=== PATIENT | male | born 1965 | race Two or more races ===

== ENCOUNTER 2020-12-23 19:49 | Inpatient (IN) ==
[2020-12-23] MEDS ORDERED: ACETAMINOPHEN 500 MG TAB PO STA (19:59)
[2020-12-23 20:39] LABS: Appearance Urine Clear (Clear); Bacteria Urine Automated Negative (Negative); Bilirubin Urine Negative (Negative); Blood Urine 1+ (Negative); Color Urine Yellow; Epithelial Cell Urine Auto 0-5 /lpf (0-5); Glucose Urine UA 3+ (Negative); Ketones Urine 3+ (Negative); Leukocyte Esterase Urine Negative (Negative); Nitrite Urine Negative (Negative); Protein Urine 1+ (Negative); RBC Urine Automated 0-4 /hpf (0-4); Specific Gravity Urine > 1.045 (1.000-1.030); Urobilinogen Urine Negative (Negative); WBC Urine Automated >30 /hpf (0-5)
[2020-12-23] MEDS ORDERED: cefTRIAXone SODIUM 1,000 MG/50 ML BAG IV STA (20:41)
[2020-12-23] MEDS ORDERED: SODIUM CHLORIDE 0.9% 1000ML 2,000 ML IV ONE (20:41)
--- NOTE | 2020-12-23 20:46 | Emergency Department Note ---
Impression & Plan Sepsis, Leukocytosis, Acute UTI ED Provider Note NAME: JENNIFER HARRIS AGE: 55 SEX: M : 1965 ARRIVES VIA: Walk-In INFORMANT: Patient ED PROVIDER(S): Pancho Martin DO CHIEF COMPLAINT: fever and urinary symptoms HPI: Patient is a 55-year-old male who presents to the ER for fever and urinary symptoms. Symptoms started in the past 24 hours. Denies any headache or change in vision. No chest pain or shortness of breath. No belly pain, nausea, vomiting, or diarrhea. He admits to dysuria and frequency. Fever started yesterday and with that he has hot flashes. Fevers as high as 101-102. No open wounds or sores. He is went to [facility] and was diagnosed with a UTI and placed on Cipro. No back pain. ROS: See above HPI for pertinent positives & negatives. A total of 10 systems reviewed and were otherwise negative. PAST MEDICAL HISTORY:See Below PAST SURGICAL HISTORY:See Below FAMILY HISTORY:See Below SOCIAL HISTORY:See Below HOME MEDICATIONS:See Below ALLERGIES:See Below VITALS:See Below PHYSICAL EXAMINATION: GENERAL: Sitting up in bed, alert, well appearing, well nourished, no distress, non-toxic EYE EXAM: normal conjunctiva. OROPHARYNX: no exudate, no erythema, lips, buccal mucosa, and tongue normal and mucous membranes are moist NECK: supple, no nuchal rigidity, no adenopathy, non-tender LUNGS: Clear to auscultation. Normal chest wall mechanics HEART: no murmurs, S1 normal and S2 normal ABDOMEN: abdomen soft, non-tender, normo-active bowel sounds, no masses, no rebound or guarding. BACK: Back is symmetrical on inspection and there is no deformity, no midline tenderness, no CVA tenderness. SKIN: no rashes and no bruising UPPER EXTREMITIES: upper extremities are grossly normal. LOWER EXTREMITIES: No pitting edema. NEURO EXAM: Normal sensorium, cranial nerves II-XII grossly intact, normal speech, no gross weakness of arms, no gross weakness of legs. MEDICAL DECISION MAKING: Patient is a 55-year-old male who presents ER for urinary symptoms. He is found to be tachycardic and febrile. Heart rate in the 120s. He denies any back pain or any other complaints with exception of feeling weak. IV was established blood was obtained. Labs show leukocytosis of 19,000. No significant anemia. BMP with slightly elevated BUN. T bili slightly elevated 1.7. TSH and lipase was unremarkable. UA consistent with white cells and hematuria. Covid was negative. Patient has no back pain or flank pain to suggest a stone. Only symptoms are with urination. No pain with having bowel movements. Patient was updated bedside. He was given IV fluids and Rocephin and admitted for further work-up. Triage Nursing notes reviewed. Limited review of prior medical records performed Vital Signs: reviewed and remarkable for tachy and febrile Differential diagnosis: Differential diagnosis includes etiologies such as sepsis, UTI, pneumonia, metabolic, electrolyte abnormalities, cardiac sources, intracerebral event, toxicologic, neurological, as well as others were entertained. ER treatment provided: See below Diagnostics interpreted by me: ECG: none Cardiac Monitoring: An order was placed for continuous cardiac monitoring. The monitor shows a rate of 89 with sinus rhythm. Laboratory studies: As stated above and show below. Imaging studies: See below Consultation(s): none Procedures: none Critical Care: None Past Med/Surg History Social History Smoking Status: Never smoker Preferred Language: Cook Islander Feels Safe at Home: Yes Results & Data (ED) Vital Signs Vital Signs - 24 hr 12/23/20 19:53 12/23/20 21:12 12/23/20 21:30 Temperature 39.3 C H Temperature Source Temporal Artery Scan Pulse Rate 121 H 96 H 98 H Pulse Rate from SpO2 Sensor Pulse Rhythm Regular Pulse Strength Normal Respiratory Rate 20 14 17 Respiratory Effort / Characteristics Non-Labored Spontaneous Respiratory Depth Normal Respiratory Pattern Regular Blood Pressure 122/77 Blood Pressure Mean 92 Blood Pressure Position Sitting Pulse Oximetry 100 Oxygen Delivery Method Room Air Sepsis Recent Fever Within 48 Hours Yes Sepsis New/Unexplained Change in Mental Status No Sepsis Action Taken by Nursing Physician Notified 12/23/20 22:00 12/23/20 22:30 12/23/20 23:00 Temperature Temperature Source Pulse Rate 88 88 87 Pulse Rate from SpO2 Sensor 88 88 87 Pulse Rhythm Pulse Strength Respiratory Rate 17 19 18 Respiratory Effort / Characteristics Respiratory Depth Respiratory Pattern Blood Pressure 129/62 126/69 125/69 Blood Pressure Mean 84 88 87 Blood Pressure Position Pulse Oximetry 97 98 98 Oxygen Delivery Method Sepsis Recent Fever Within 48 Hours Sepsis New/Unexplained Change in Mental Status Sepsis Action Taken by Nursing 12/23/20 23:30 12/24/20 00:03 Temperature Temperature Source Pulse Rate 86 86 Pulse Rate from SpO2 Sensor 87 86 Pulse Rhythm Pulse Strength Respiratory Rate 9 L 15 Respiratory Effort / Characteristics Respiratory Depth Respiratory Pattern Blood Pressure 129/71 Blood Pressure Mean 90 Blood Pressure Position Pulse Oximetry 99 96 Oxygen Delivery Method Sepsis Recent Fever Within 48 Hours Sepsis New/Unexplained Change in Mental Status Sepsis Action Taken by Nursing Laboratory Data Result diagrams: 12/23/20 21:15 12/23/20 21:15 Lab Results 12/23/20 12/23/20 12/23/20 Range/Units 20:00 21:15 21:15 WBC 19.01 H (4.8-10.8) K/uL RBC 4.54 L (4.7-6.1) M/uL Hgb 13.7 L (14.0-18.0) g/dL Hct 39.6 L (42-52) % MCV 87.2 (80-100) fL MCH 30.2 (25-34) pg MCHC 34.6 (32-36) g/dL RDW Std Deviation 42.6 (36.4-46.3) fL RDW Coeff of Rodger 13.4 (11.5-14.5) % Plt Count 265 (130-400) K/uL MPV 8.8 (7.4-10.4) fL Immature Gran % (Auto) 0.4 % Neut % (Auto) 79.4 % Lymph % (Auto) 8.1 % [place] % (Auto) 12.0 % Eos % (Auto) 0.0 % Baso % (Auto) 0.1 % Neut # (Auto) 15.10 H (1.4-6.5) K/uL Lymph # (Auto) 1.54 (1.2-3.4) K/uL [place] # (Auto) 2.29 H (0.11-0.59) K/uL Eos # (Auto) 0.00 (0-0.5) K/uL Baso # (Auto) 0.01 (0-0.2) K/uL Immature Gran # (Auto) 0.07 H (0.00-0.02) K/uL Sodium 136 (136-145) mmol/L Potassium 3.7 (3.5-5.1) mmol/L Chloride 105 (98-107) mmol/L Carbon Dioxide 23 (21-32) mmol/L Anion Gap 8.0 (3-11) BUN 19 H (7-18) mg/dl Creatinine 1.06 (0.6-1.4) mg/dl Est Cr Clr Drug Dosing 81.9 ml/min Est GFR ( Amer) 89.9 ml/min Est GFR (Non-Af Amer) 77.5 ml/min BUN/Creatinine Ratio 17.9 (10-20) Glucose 119 H (70-99) mg/dl Lactate (0.4-2.0) mmol/L Calcium 9.1 (8.5-10.1) mg/dl Magnesium 2.3 (1.8-2.4) mg/dl Total Bilirubin 1.7 H (0.2-1) mg/dl AST 18 (15-37) U/L ALT 33 (12-78) U/L Alkaline Phosphatase 67 (45-117) U/L Total Protein 8.3 H (6.4-8.2) gm/dl Albumin 3.6 (3.4-5.0) gm/dl Globulin 4.7 H (2.5-4.0) gm/dl Albumin/Globulin Ratio 0.8 L (0.9-2) Lipase 272 (73-393) U/L TSH 2.600 (0.300-4.500) uIu/ml Urine Color Yellow Urine Appearance Clear (Clear) Urine pH 5.0 (4.5-7.5) Ur Specific [place] > 1.045 H (1.000-1.030) Urine Protein 1+ H (Negative) Urine Glucose (UA) 3+ H (Negative) Urine Ketones 3+ H (Negative) Urine Blood 1+ H (Negative) Urine Nitrite Negative (Negative) Urine Bilirubin Negative (Negative) Urine Urobilinogen Negative (Negative) Ur Leukocyte Esterase Negative (Negative) Urine WBC (Auto) >30 H (0-5) /hpf Urine RBC (Auto) 0-4 (0-4) /hpf U Hyaline Cast (Auto) 1-5 (0-5) /lpf U Epithel Cells (Auto) 0-5 (0-5) /lpf Urine Bacteria (Auto) Negative (Negative) COVID-19 Eval Order 12/23/20 12/24/20 Range/Units 21:15 00:30 WBC (4.8-10.8) K/uL RBC (4.7-6.1) M/uL Hgb (14.0-18.0) g/dL Hct (42-52) % MCV (80-100) fL MCH (25-34) pg MCHC (32-36) g/dL RDW Std Deviation (36.4-46.3) fL RDW Coeff of [place]ger (11.5-14.5) % Plt Count (130-400) K/uL MPV (7.4-10.4) fL Immature Gran % (Auto) % Neut % (Auto) % Lymph % (Auto) % [place] % (Auto) % Eos % (Auto) % Baso % (Auto) % Neut # (Auto) (1.4-6.5) K/uL Lymph # (Auto) (1.2-3.4) K/uL [place] # (Auto) (0.11-0.59) K/uL Eos # (Auto) (0-0.5) K/uL Baso # (Auto) (0-0.2) K/uL Immature Gran # (Auto) (0.00-0.02) K/uL Sodium (136-145) mmol/L Potassium (3.5-5.1) mmol/L Chloride (98-107) mmol/L Carbon Dioxide (21-32) mmol/L Anion Gap (3-11) BUN (7-18) mg/dl Creatinine (0.6-1.4) mg/dl Est Cr Clr Drug Dosing ml/min Est GFR ( Amer) ml/min Est GFR (Non-Af Amer) ml/min BUN/Creatinine Ratio (10-20) Glucose (70-99) mg/dl Lactate 1.1 (0.4-2.0) mmol/L Calcium (8.5-10.1) mg/dl Magnesium (1.8-2.4) mg/dl Total Bilirubin (0.2-1) mg/dl AST (15-37) U/L ALT (12-78) U/L Alkaline Phosphatase (45-117) U/L Total Protein (6.4-8.2) gm/dl Albumin (3.4-5.0) gm/dl Globulin (2.5-4.0) gm/dl Albumin/Globulin Ratio (0.9-2) Lipase (73-393) U/L TSH (0.300-4.500) uIu/ml Urine Color Urine Appearance (Clear) Urine pH (4.5-7.5) Ur Specific [place] (1.000-1.030) Urine Protein (Negative) Urine Glucose (UA) (Negative) Urine Ketones (Negative) Urine Blood (Negative) Urine Nitrite (Negative) Urine Bilirubin (Negative) Urine Urobilinogen (Negative) Ur Leukocyte Esterase (Negative) Urine WBC (Auto) (0-5) /hpf Urine RBC (Auto) (0-4) /hpf U Hyaline Cast (Auto) (0-5) /lpf U Epithel Cells (Auto) (0-5) /lpf Urine Bacteria (Auto) (Negative) COVID-19 Eval Order Covid19 at [facility] Administered Medications Discontinued Medications Acetaminophen (Acetaminophen 500 Mg Tab) 1,000 mg PO NOW STA Stop: 12/23/20 20:00 Last Admin: 12/23/20 20:08 Dose: 1,000 mg Documented by: [id number] Sodium Chloride (Nss 1000ml) 2,000 mls @ 999 mls/hr IV .Q2H1M ONE Stop: 12/23/20 22:41 Last Infusion: 12/23/20 23:42 Dose: 0 mls/hr Documented by: [id number] Admin: 12/23/20 21:43 Dose: 999 mls/hr Documented by: [id number] Ceftriaxone Sodium (Rocephin) 1,000 mg in 50 mls @ 100 mls/hr IV NOW STA Stop: 12/23/20 21:10 Last Infusion: 12/23/20 22:17 Dose: 0 mls/hr Documented by: [id number] Admin: 12/23/20 21:45 Dose: 100 mls/hr Documented by: [id number] Cefepime HCl (Maxipime) 2,000 mg in 20 mls @ 5 mls/min IV NOW STA; Protocol Stop: 12/24/20 00:55 Last Admin: 12/24/20 01:00 Dose: 5 mls/min Documented by: [id number] Potassium Chloride (Potassium Chloride Crtab 20 Meq Tabcr) 40 meq PO NOW STA Stop: 12/24/20 00:53 Last Admin: 12/24/20 01:00 Dose: 40 meq Documented by: [id number] Discharge Plan Visit Data Chief Complaint: Illness Stated Complaint: ON & OFF FEVER, UTI, ELEVATED HEART RATE ED Provider: Pancho Martin Discharge Problem: Sepsis, Leukocytosis, Acute UTI Forms Stand Alone Forms: [facility] Referrals Referrals: PCP,NO [Physician] -
[2020-12-23 21:30] LABS: Basophils # (auto) 0.01 K/uL (0-0.2); Basophils % (auto) 0.1 %; Hematocrit (blood only) 39.6 % (42-52); Hemoglobin 13.7 g/dL (14.0-18.0); Immature Granulocytes # (auto) 0.07 K/uL (0.00-0.02); Immature Granulocytes % (auto) 0.4 %; Lymphocytes # (auto) 1.54 K/uL (1.2-3.4); Lymphocytes % (auto) 8.1 %; Mean Corpuscular Hemoglobin 30.2 pg (25-34); Mean Corpuscular Hgb Conc 34.6 g/dL (32-36); Mean Corpuscular Volume 87.2 fL (80-100); Mean Platelet Volume 8.8 fL (7.4-10.4); Monocytes # (auto) 2.29 K/uL (0.11-0.59); Neutrophils % (auto) 79.4 %; Platelet Count 265 K/uL (130-400); RDW Coefficient of Variation 13.4 % (11.5-14.5); RDW Standard Deviation 42.6 fL (36.4-46.3); Red Blood Count 4.54 M/uL (4.7-6.1); White Blood Count 19.01 K/uL (4.8-10.8)
[2020-12-23 21:48] LABS: Albumin Level 3.6 gm/dl (3.4-5.0); BUN Creatinine Ratio 17.9 (10-20); Calcium 9.1 mg/dl (8.5-10.1); Creatinine Clr Calc Pharmacy 81.9 ml/min; Est GFR (African American) 89.9 ml/min; Est GFR (Non-African American) 77.5 ml/min; Potassium 3.7 mmol/L (3.5-5.1)
[2020-12-23 21:51] LABS: Albumin Globulin Ratio 0.8 (0.9-2); Bilirubin,Total 1.7 mg/dl (0.2-1); Globulin 4.7 gm/dl (2.5-4.0); Total Protein 8.3 gm/dl (6.4-8.2)
[2020-12-24 00:26] LABS: Magnesium 2.3 mg/dl (1.8-2.4)
--- NOTE | 2020-12-24 00:47 | History & Physical Report ---
Date of Service December 24, 2020 Assessment & Plan (1) Sepsis: Plan: Secondary to complicated UTI status post partial Cipro treatment hypertension, stable hyperlipidemia, statin Rx DM2 on oral medications, suboptimal control as of recent hemoglobin A1c of 7.11 Oct 2020 Medical telemetry CS, Cefepime Basal insulin, ISS BG goal 1 10-1 40, carb count coverage DVT prophylaxis. Lovenox subcu Full code Text document was generated using [employer] voice recognition software. It may contain grammatical or spelling errors. Kindly contact undersigned for clarification of any documentation item in question. History of Present Illness Chief Complaint: Urinary symptoms, fever Primary Care Provider: Gen Casey MD History obtained from patient and records. Medical history significant for hypertension, hyperlipidemia, DM2 on oral medications. 2 days history of dysuria symptoms later followed by fever chills yesterday. No hematuria, flank pain. No prior UTI episodes. Patient denies chest pain, cough, S OB. Patient seen at urgent care center yesterday. Prescribed ciprofloxacin for possible UTI. Some improvement in symptoms after 2 doses of antibiotic. At the ER, patient received IV Ceftriaxone for sepsis. Medical History as above Right scrotal lump noted October 2020 which resolved with heat application. Moderate left varicocele of left testicle on outpatient imaging. 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 Allergies Allergy/AdvReac Type Severity Reaction Status Date / Time shellfish derived AdvReac Vomiting Verified 12/24/20 01:33 Home Medications Medication Instructions Recorded Confirmed Type amlodipine 2.5 mg tablet 2.5 mg PO DAILY 12/24/20 12/24/20 History atorvastatin 10 mg tablet 10 mg PO HS 12/24/20 12/24/20 History diphenhydramine HCl 25 mg PO HS PRN 12/24/20 12/24/20 History empagliflozin 25 mg tablet 25 mg PO DAILY 12/24/20 12/24/20 History (Jardiance) glimepiride 4 mg tablet 4 mg PO BID 12/24/20 12/24/20 History ibuprofen 200 mg-diphenhydramine 1 cap PO HS PRN 12/24/20 12/24/20 History HCl 25 mg capsule (Advil PM Liqui-Gels) lisinopril 40 mg tablet 40 mg PO DAILY 12/24/20 12/24/20 History metformin 1,000 mg tablet 1,000 mg PO DAILY 12/24/20 12/24/20 History omega-3 fatty acids 500 mg PO DAILY 12/24/20 12/24/20 History semaglutide 14 mg tablet (Rybelsus) 14 mg PO DAILY 12/24/20 12/24/20 History Past Med/Surg History Social History Smoking Status: Never smoker Hx Alcohol Use: Yes Alcohol type: wine Hx Substance Use: No Preferred Language: Icelandic Beliefs That Will Affect Care: None Current Living Situation: Family Current Living Situation Comment: Home with and 3 children Other Information That Helps Us Care for You: No Feels Safe at Home: Yes Safety Concerns: Feels Safe At This Time Assistive Devices: Glasses Review of Systems Review of Systems: As per HPI, all 10 systems reviewed, all other ROS negative Physical Exam Physical Exam: GENERAL: Comfortable, pleasant, looks younger than stated age, no respiratory distress SKIN: Normal color, warm HEENT: [place] palpebral conjunctivae, no ptosis, dry buccal mucosa NECK : Supple, no tenderness CHEST : CTA, no tenderness HEART : RRR, no obvious murmurs ABDOMEN: Some distention, nontender EXTREMITIES : No LE swelling/tenderness, no other conspicuous deformities noted NEUROLOGIC : Coherent, no facial asymmetry, no other gross focality Results & Data Results & Data ([facility]) Vital Signs (Past 12 Hours) Vital Signs Temp Pulse Resp BP Pulse Ox 12/24/20 00:03 86 15 96 12/23/20 23:30 86 9 L 129/71 99 12/23/20 23:00 87 18 125/69 98 12/23/20 22:30 88 19 126/69 98 12/23/20 22:00 88 17 129/62 97 12/23/20 21:30 98 H 17 12/23/20 21:12 96 H 14 12/23/20 19:53 39.3 C H 121 H 20 122/77 100 Laboratory Results Laboratory Results WBC 19.01 K/uL (4.8-10.8) H 12/23/20 21:15 RBC 4.54 M/uL (4.7-6.1) L 12/23/20 21:15 Hgb 13.7 g/dL (14.0-18.0) L 12/23/20 21:15 Hct 39.6 % (42-52) L 12/23/20 21:15 MCV 87.2 fL (80-100) 12/23/20 21:15 MCH 30.2 pg (25-34) 12/23/20 21:15 MCHC 34.6 g/dL (32-36) 12/23/20 21:15 RDW Std Deviation 42.6 fL (36.4-46.3) 12/23/20 21:15 RDW Coeff of Rodger 13.4 % (11.5-14.5) 12/23/20 21:15 Plt Count 265 K/uL (130-400) 12/23/20 21:15 MPV 8.8 fL (7.4-10.4) 12/23/20 21:15 Immature Gran % (Auto) 0.4 % 12/23/20 21:15 Neut % (Auto) 79.4 % 12/23/20 21:15 Lymph % (Auto) 8.1 % 12/23/20 21:15 [place] % (Auto) 12.0 % 12/23/20 21:15 Eos % (Auto) 0.0 % 12/23/20 21:15 Baso % (Auto) 0.1 % 12/23/20 21:15 Neut # (Auto) 15.10 K/uL (1.4-6.5) H 12/23/20 21:15 Lymph # (Auto) 1.54 K/uL (1.2-3.4) 12/23/20 21:15 [place] # (Auto) 2.29 K/uL (0.11-0.59) H 12/23/20 21:15 Eos # (Auto) 0.00 K/uL (0-0.5) 12/23/20 21:15 Baso # (Auto) 0.01 K/uL (0-0.2) 12/23/20 21:15 Immature Gran # (Auto) 0.07 K/uL (0.00-0.02) H 12/23/20 21:15 Sodium 136 mmol/L (136-145) 12/23/20 21:15 Potassium 3.7 mmol/L (3.5-5.1) 12/23/20 21:15 Chloride 105 mmol/L (98-107) 12/23/20 21:15 Carbon Dioxide 23 mmol/L (21-32) 12/23/20 21:15 Anion Gap 8.0 (3-11) 12/23/20 21:15 BUN 19 mg/dl (7-18) H 12/23/20 21:15 Creatinine 1.06 mg/dl (0.6-1.4) 12/23/20 21:15 Est Cr Clr Drug Dosing 81.9 ml/min 12/23/20 21:15 Est GFR ( Amer) 89.9 ml/min 12/23/20 21:15 Est GFR (Non-Af Amer) 77.5 ml/min 12/23/20 21:15 BUN/Creatinine Ratio 17.9 (10-20) 12/23/20 21:15 Glucose 119 mg/dl (70-99) H 12/23/20 21:15 Lactate 1.1 mmol/L (0.4-2.0) 12/23/20 21:15 Calcium 9.1 mg/dl (8.5-10.1) 12/23/20 21:15 Magnesium 2.3 mg/dl (1.8-2.4) 12/23/20 21:15 Total Bilirubin 1.7 mg/dl (0.2-1) H 12/23/20 21:15 AST 18 U/L (15-37) 12/23/20 21:15 ALT 33 U/L (12-78) 12/23/20 21:15 Alkaline Phosphatase 67 U/L (45-117) 12/23/20 21:15 Total Protein 8.3 gm/dl (6.4-8.2) H 12/23/20 21:15 Albumin 3.6 gm/dl (3.4-5.0) 12/23/20 21:15 Globulin 4.7 gm/dl (2.5-4.0) H 12/23/20 21:15 Albumin/Globulin Ratio 0.8 (0.9-2) L 12/23/20 21:15 Lipase 272 U/L (73-393) 12/23/20 21:15 Urine Color Yellow 12/23/20 20:00 Urine Appearance Clear (Clear) 12/23/20 20:00 Urine pH 5.0 (4.5-7.5) 12/23/20 20:00 Ur Specific [place] > 1.045 (1.000-1.030) H 12/23/20 20:00 Urine Protein 1+ (Negative) H 12/23/20 20:00 Urine Glucose (UA) 3+ (Negative) H 12/23/20 20:00 Urine Ketones 3+ (Negative) H 12/23/20 20:00 Urine Blood 1+ (Negative) H 12/23/20 20:00 Urine Nitrite Negative (Negative) 12/23/20 20:00 Urine Bilirubin Negative (Negative) 12/23/20 20:00 Urine Urobilinogen Negative (Negative) 12/23/20 20:00 Ur Leukocyte Esterase Negative (Negative) 12/23/20 20:00 Urine WBC (Auto) >30 /hpf (0-5) H 12/23/20 20:00 Urine RBC (Auto) 0-4 /hpf (0-4) 12/23/20 20:00 U Hyaline Cast (Auto) 1-5 /lpf (0-5) 12/23/20 20:00 U Epithel Cells (Auto) 0-5 /lpf (0-5) 12/23/20 20:00 Urine Bacteria (Auto) Negative (Negative) 12/23/20 20:00 COVID-19 Eval Order Covid19 at [facility] 12/24/20 00:30 Diagnostic Findings Chest x-ray as per my interpretation elevated right hemidiaphragm
[2020-12-24] MEDS ORDERED: CEFEPIME 2,000 MG/20 ML VIAL IV STA (00:52)
[2020-12-24] MEDS ORDERED: POTASSIUM CHLORIDE CRTAB 20 MEQ TABCR PO STA (00:52)
[2020-12-24 01:00] LABS: Thyroid Stimulating Hormone 2.6 uIu/ml (0.300-4.500)
[2020-12-24] MEDS ORDERED: POTASSIUM CHLORIDE 40 MEQ in SODIUM CHLORIDE 0.9% 1000ML 1,000 ML IV ONE (01:30)
[2020-12-24] MEDS ORDERED: PROMETHAZINE HCL 12.5 MG in SODIUM CHLORIDE 0.9% 50 ML IV PRN (02:55)
[2020-12-24] MEDS ORDERED: DEXTROSE 50% 50 ML SYRINGE IV PRN (02:55)
[2020-12-24] MEDS ORDERED: CEFEPIME CONSULT ACTIVE PRN (02:55)
[2020-12-24] MEDS ORDERED: GLUCAGON FOR INJ 1 MG VIAL SQ PRN (02:55)
[2020-12-24] MEDS ORDERED: ACETAMINOPHEN 325 MG TAB PO PRN (02:55)
[2020-12-24] MEDS ORDERED: GLUCOSE 10 TABS/TUBE PO PRN (02:55)
[2020-12-24] MEDS ORDERED: CARBOHYDRATES FOR HYPOGLYCEMIA PO PRN (02:55)
[2020-12-24] MEDS ORDERED: traMADol HCL 50 MG TABLET PO PRN (02:55)
[2020-12-24] MEDS ORDERED: GLUCOSE 40% GEL 15 GM TUBE PO PRN (02:55)
[2020-12-24] MEDS ORDERED: LORazepam 0.25 MG/0.5 ML VIAL IV PRN (02:55)
[2020-12-24] MEDS: INSULIN ASPART 100 UNITS/ML 3 ML PEN SC SCH ×5 (05:55→20:48)
[2020-12-24 06:49] LABS: Basophils # (auto) 0.01 K/uL (0-0.2); Basophils % (auto) 0.1 %; Eosinophils # (auto) 0.07 K/uL (0-0.5); Eosinophils % (auto) 0.4 %; Hematocrit (blood only) 38.5 % (42-52); Hemoglobin 13.1 g/dL (14.0-18.0); Immature Granulocytes # (auto) 0.06 K/uL (0.00-0.02); Immature Granulocytes % (auto) 0.4 %; Lymphocytes # (auto) 1.99 K/uL (1.2-3.4); Lymphocytes % (auto) 11.9 %; Mean Corpuscular Hemoglobin 30.1 pg (25-34); Mean Corpuscular Volume 88.5 fL (80-100); Mean Platelet Volume 8.6 fL (7.4-10.4); Monocytes # (auto) 2.21 K/uL (0.11-0.59); Monocytes % (auto) 13.2 %; Neutrophils # (auto) 12.37 K/uL (1.4-6.5); Platelet Count 267 K/uL (130-400); RDW Coefficient of Variation 13.5 % (11.5-14.5); RDW Standard Deviation 44.4 fL (36.4-46.3); Red Blood Count 4.35 M/uL (4.7-6.1); White Blood Count 16.71 K/uL (4.8-10.8)
[2020-12-24 07:16] LABS: BUN Creatinine Ratio 18.5 (10-20); Calcium 8.6 mg/dl (8.5-10.1); Creatinine Clr Calc Pharmacy 98.6 ml/min; Est GFR (African American) 110.5 ml/min; Est GFR (Non-African American) 95.4 ml/min; Potassium 4.4 mmol/L (3.5-5.1)
[2020-12-24] MEDS: amLODIPine BESYLATE 5 MG TAB PO SCH (08:12)
[2020-12-24] MEDS: lisinopril 40 MG TAB PO SCH (08:13)
[2020-12-24] MEDS: ENOXAPARIN INJ 40 MG/0.4 ML SYR SQ SCH (08:14)
[2020-12-24] MEDS: INSULIN GLARGINE SOLOSTAR 100 UNITS/ML 3 ML PEN SC SCH (08:15)
--- NOTE | 2020-12-24 08:17 | XRay Report ---
XR chest 1V portable HISTORY: Fevers. sepsis COMPARISON: None. FINDINGS: The lungs are clear. Cardiac silhouette is normal in size. No pleural effusions. No pneumot horax. IMPRESSION: No acute process. ACT 112: Negative or not required by law. Electronically signed by: Ovi Aguilar M.D. 12/24/2020 8:16 AM
[2020-12-24] MEDS: CEFEPIME 2,000 MG in SYRINGE 0 ML IV SCH ×2 (10:42→20:48)
--- NOTE | 2020-12-24 11:01 | Hospitalist Progress Note ---
Date of Service December 24, 2020 Assessment & Plan (1) Sepsis: Plan: Sepsis UTI Partly treated with Ciprofloxacin as outpatient Blood, urine culture pending Continue IV fluids Continue cefepime Leukocytosis trending down Hypertension BP stable Continue amlodipine, lisinopril Hyperlipidemia On statin DM II Hol PO meds Last HbA1C:7.4 Continue Insulin therapy while hospitalized Monitor BGs DVT Px: Lovenox SQ Code Status Full code Admission and Anticipated Discharge Date Admission Date: December 24, 2020 Subjective Patient is seen and examined at bedside Dysuria resolved Denies any hematuria, flank pain, chest pain, dyspnea, dizziness Eager to get discharged Leukocytosis trending down Offers no other complaints Review of Systems Review of Systems: All systems reviewed & are unremarkable except as noted in Subjective Physical Exam Physical Exam: Physical Exam: Vitals signs as noted above General Appearance:Moderately built and nourished, no apparent distress Head: normocephalic, Atraumatic Eyes: normal inspection, EOMI Neck: supple, Trachea midline Respiratory/Chest: Normal breath sounds, CTA, No accessory muscle use Cardiovascular: S1, S2, No murmur Abdomen/GI:Soft, Non tender, Bowel sounds present Extremities/Musculoskeletal:normal inspection, no edema Neurologic/Psych:AAOX3, grossly no focal neurological deficits Skin: normal color, warm Results & Data Results & Data ([facility]) Vital Signs (Past 12 Hours) Vital Signs Temp Pulse Pulse Pulse Resp BP BP 12/24/20 07:30 37.6 C H 88 16 12/24/20 07:24 89 12/24/20 02:55 37.4 C 90 16 131/68 12/24/20 02:48 89 12/24/20 02:26 37.3 C 90 18 147/75 H 12/24/20 02:00 88 17 147/75 H 12/24/20 01:30 90 19 153/65 H 12/24/20 01:21 37.3 C 12/24/20 01:00 93 H 19 141/71 H 12/24/20 00:30 93 H 18 141/72 H 12/24/20 00:03 86 15 12/23/20 23:30 86 9 L 129/71 12/23/20 23:00 87 18 125/69 BP Pulse Ox Pulse Ox 12/24/20 07:30 129/68 99 12/24/20 07:24 12/24/20 02:55 98 98 12/24/20 02:48 12/24/20 02:26 97 12/24/20 02:00 98 12/24/20 01:30 97 12/24/20 01:21 12/24/20 01:00 99 12/24/20 00:30 98 12/24/20 00:03 96 12/23/20 23:30 99 12/23/20 23:00 98 Laboratory Results Short CBC 12/23/20 12/24/20 Range/Units 21:15 06:34 WBC 19.01 H 16.71 H (4.8-10.8) K/uL Hgb 13.7 L 13.1 L (14.0-18.0) g/dL Hct 39.6 L 38.5 L (42-52) % Plt Count 265 267 (130-400) K/uL BMP 12/23/20 12/24/20 21:15 06:34 Sodium 136 139 Potassium 3.7 4.4 D Chloride 105 110 H Carbon Dioxide 23 23 BUN 19 H 16 Creatinine 1.06 0.88 Glucose 119 H 131 H Calcium 9.1 8.6 Liver Function 12/23/20 Range/Units 21:15 Total Bilirubin 1.7 H (0.2-1) mg/dl AST 18 (15-37) U/L ALT 33 (12-78) U/L Alkaline Phosphatase 67 (45-117) U/L Albumin 3.6 (3.4-5.0) gm/dl Urine 12/23/20 Range/Units 20:00 Urine Color Yellow Urine Appearance Clear (Clear) Urine pH 5.0 (4.5-7.5) Ur Specific [place] > 1.045 H (1.000-1.030) Urine Protein 1+ H (Negative) Urine Glucose (UA) 3+ H (Negative)
[2020-12-24] MEDS ORDERED: ATORVASTATIN 10 MG TAB PO SCH (21:00)
[2020-12-25 06:13] LABS: Hematocrit (blood only) 37.6 % (42-52); Hemoglobin 12.7 g/dL (14.0-18.0); Mean Corpuscular Hemoglobin 29.7 pg (25-34); Mean Corpuscular Hgb Conc 33.8 g/dL (32-36); Mean Corpuscular Volume 87.9 fL (80-100); Mean Platelet Volume 8.4 fL (7.4-10.4); Platelet Count 244 K/uL (130-400); RDW Coefficient of Variation 13.6 % (11.5-14.5); RDW Standard Deviation 43.3 fL (36.4-46.3); Red Blood Count 4.28 M/uL (4.7-6.1); White Blood Count 10.14 K/uL (4.8-10.8)
[2020-12-25 06:52] LABS: BUN Creatinine Ratio 21.2 (10-20); Calcium 8.4 mg/dl (8.5-10.1); Creatinine Clr Calc Pharmacy 115.7 ml/min; Est GFR (Non-African American) 101.8 ml/min; Magnesium 2.3 mg/dl (1.8-2.4); Potassium 4.3 mmol/L (3.5-5.1)
[2020-12-25 07:01] LABS: Albumin Globulin Ratio 0.7 (0.9-2); Bilirubin,Total 0.8 mg/dl (0.2-1); Globulin 4.4 gm/dl (2.5-4.0); Total Protein 7.4 gm/dl (6.4-8.2)
[2020-12-25] MEDS: lisinopril 40 MG TAB PO SCH (08:21)
[2020-12-25] MEDS: amLODIPine BESYLATE 5 MG TAB PO SCH (08:21)
[2020-12-25] MEDS: ENOXAPARIN INJ 40 MG/0.4 ML SYR SQ SCH (08:21)
[2020-12-25] MEDS: INSULIN ASPART 100 UNITS/ML 3 ML PEN SC SCH (08:23)
[2020-12-25] MEDS: INSULIN GLARGINE SOLOSTAR 100 UNITS/ML 3 ML PEN SC SCH (08:24)
[2020-12-25] MEDS: CEFEPIME 2,000 MG in SYRINGE 0 ML IV SCH (10:55)
--- NOTE | 2020-12-25 11:36 | Hospitalist Progress Note ---
Date of Service December 25, 2020 Assessment & Plan (1) Sepsis: Plan: Sepsis UTI Partly treated with Ciprofloxacin as outpatient Blood Culture: No growth to date Outpatient Urine Culture--pending Urine culture: Negative (Patly treated while on Ciprofloxacin) Discontinue IV fluids Continue cefepime Day #2>>Transition to PO antibiotics to complete the course Hypertension BP stable Continue amlodipine, lisinopril Hyperlipidemia On statin DM II Hol PO meds Last HbA1C:7.4 Continue Insulin therapy while hospitalized Monitor BGs DVT Px: Lovenox SQ Code Status Full code Admission and Anticipated Discharge Date Admission Date: December 24, 2020 Subjective Patient is seen and examined at bedside Doing well No new complaints No recurrence of dysuria Denies any hematuria, flank pain, chest pain, dyspnea, dizziness Leukocytosis resolved Review of Systems 2 Review of Systems: As per HPI, all 10 systems reviewed, all other ROS negative Physical Exam Physical Exam: Physical Exam: Vitals signs as noted above General Appearance:Moderately built and nourished, no apparent distress Head: normocephalic, Atraumatic Eyes: normal inspection, EOMI Neck: supple, Trachea midline Respiratory/Chest: Normal breath sounds, CTA, No accessory muscle use Cardiovascular: S1, S2, No murmur Abdomen/GI:Soft, Non tender, Bowel sounds present Extremities/Musculoskeletal:normal inspection, no edema Neurologic/Psych:AAOX3, grossly no focal neurological deficits Skin: normal color, warm Results & Data Results & Data ([facility]) Vital Signs (Past 12 Hours) Vital Signs Temp Pulse Pulse Resp BP BP Pulse Ox 12/25/20 07:38 37.2 C 64 16 124/75 96 12/25/20 07:32 79 12/25/20 03:02 37 C 84 18 118/69 98 12/25/20 00:58 81
--- NOTE | 2020-12-25 11:43 | Discharge Summary ---
Date of Service December 25, 2020 Admission HPI Per Admitting Provider History obtained from patient and records. Medical history significant for hypertension, hyperlipidemia, DM2 on oral medications. 2 days history of dysuria symptoms later followed by fever chills yesterday. No hematuria, flank pain. No prior UTI episodes. Patient denies chest pain, cough, S OB. Patient seen at urgent care center yesterday. Prescribed ciprofloxacin for possible UTI. Some improvement in symptoms after 2 doses of antibiotic. At the ER, patient received IV Ceftriaxone for sepsis. Medical History as above Right scrotal lump noted October 2020 which resolved with heat application. Moderate left varicocele of left testicle on outpatient imaging. 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 Admission Exam Per Admitting Provider Physical Exam Physical Exam: GENERAL: Comfortable, pleasant, looks younger than stated age, no respiratory distress SKIN: Normal color, warm HEENT: [place] palpebral conjunctivae, no ptosis, dry buccal mucosa NECK : Supple, no tenderness CHEST : CTA, no tenderness HEART : RRR, no obvious murmurs ABDOMEN: Some distention, nontender EXTREMITIES : No LE swelling/tenderness, no other conspicuous deformities noted NEUROLOGIC : Coherent, no facial asymmetry, no other gross focality Principal Diagnosis Sepsis Urinary Tract Infection Discharge Data Allergies Allergy/AdvReac Type Severity Reaction Status Date / Time shellfish derived AdvReac Vomiting Verified 12/24/20 01:33 Consultations 12/23/20 23:55 ED Decision to Admit Stat Hospital Course (1) Sepsis: Sepsis UTI Partly treated with Ciprofloxacin as outpatient Blood Culture: No growth to date Outpatient Urine Culture--pending Urine culture: Negative (Patly treated while on Ciprofloxacin) Discontinue IV fluids Continue cefepime Day #2>>Transition to PO antibiotics to complete the course Hypertension BP stable Continue amlodipine, lisinopril Hyperlipidemia On statin DM II Hol PO meds Last HbA1C:7.4 Continue Insulin therapy while hospitalized Monitor BGs DVT Px: Lovenox SQ Code Status Full code Total Time Total Time Spent Total Time Spent (In Minutes): 39 minutes Discharge Plan Discharge Items Patient Disposition: Home - Self-Care Reason For Visit: SEPSIS Discharge Diagnosis: Sepsis Urinary Tract Infection Activity: Per Instructions section Exercise/Sports: Gradually increase as tolerated Non-emergency contact: Primary Care Provider Call non-emergency contact if: you have any medication questions, your symptoms worsen, your pain is concerning for you and you have a fever Follow-up/Referrals: Gen Casey MD [Primary Care Provider] - Diet: Carb Consistent or DM2 and Heart Healthy Addtl Attending Provider Instructions: Follow-up with your primary care physician Dr. Casey in 1 week as advised Your outpatient urine culture is pending at the time of discharge. Follow-up with your physician for results and discuss about need for medication adjustment if necessary. Your final blood cultures are pending at the time of discharge. Follow-up with your physician for results. Complete the Antibiotic course (Ciprofloxacin 500mg twice a day) for 7 more days to complete the course. Seek immediate medical attention if your symptoms reoccur or worsen Please take all medications as instructed on discharge list below. Please call if you have any questions or problems. You can reach a [facility] hospitalist on duty at [facility] 24 hours a day by calling [phone] Pending Studies at Discharge: No Stand-Alone Forms: My [facility] Cardiac Insight, Smoking Cessation Medications and DC Order Prescriptions: Continued metformin 1,000 mg Tablet 1,000 mg PO DAILY RF: 0 atorvastatin 10 mg Tablet 10 mg PO HS RF: 0 amlodipine 2.5 mg Tablet 2.5 mg PO DAILY RF: 0 glimepiride 4 mg Tablet 4 mg PO BID RF: 0 lisinopril 40 mg Tablet 40 mg PO DAILY RF: 0 omega-3 fatty acids Capsule 500 mg PO DAILY RF: 0 Advil PM Liqui-Gels 200-25 mg Capsule 1 cap PO HS PRN (Reason: Pain) RF: 0 Jardiance 25 mg Tablet 25 mg PO DAILY RF: 0 Rybelsus 14 mg Tablet 14 mg PO DAILY RF: 0 diphenhydramine HCl 25 mg PO HS PRN (Reason: Sleep) RF: 0 Cipro 500 mg PO BID RF: 0 Discharge Orders: Discharge Order (Routine); Ordered 12/25/20 Ordered By: Maury Wilcox Admission Data Admit Date/Time: 12/24/20 01:51 Attending Provider: Maury Wilcox Admit Provider: Cedric Neff Primary Care Provider: Gen Casey Other Providers: Cedric Neff Other Interventions: Discharge Summary Assessment (RN) Last Done: 12/25/20 11:57
== END 2020-12-25 13:08 | disposition home or self-care (01) | DRG 872 ==
LOC: ED 19:49 → 2N 12-24 01:51 → SUATTDRO 12-24 01:51 → 2N 12-24 02:26